=== PATIENT | female | born 1975 | race Caucasian/White ===

== ENCOUNTER 2022-12-05 07:44 | Emergency (ER) | payer MEDICAID ==
[~2022-12-05] VITALS: Ht 160 cm; Wt 65.8 kg
[~2022-12-05 07:44] MED LIST: ABILIFY MYCITE10 M2 PO; ESTR2 PO; PROG100 PO; Prozac20 MG PO; Valium5 MG PO
[2022-12-05 08:04] VITALS: BP 112/76
[2022-12-05] MEDS ORDERED: Lorazepam2 MG PO (08:16)
== END 2022-12-05 08:25 | disposition home or self-care (01) ==
LOC: ER 07:44
DX: Z76.0 Encounter for issue of repeat prescription (principal); F17.200 Nicotine dependence, unspecified, uncomplicated; Z88.2 Allergy status to sulfonamides
CPT/HCPCS: 99281

== ENCOUNTER 2023-01-04 16:02 | Emergency (ER) | payer OTHER ==
[~2023-01-04] VITALS: Ht 167.6 cm; Wt 65.8 kg
[~2023-01-04 16:02] MED LIST changes: +Lorazepam2 MG PO
[2023-01-04 19:02] VITALS: BP 114/70
== END 2023-01-04 19:16 | disposition home or self-care (01) ==
LOC: ER 16:02
DX: S91.201A Unspecified open wound of right great toe with damage to nail, initial encounter (principal); W22.8XXA Striking against or struck by other objects, initial encounter; Z88.2 Allergy status to sulfonamides; Z79.899 Other long term (current) drug therapy; F17.200 Nicotine dependence, unspecified, uncomplicated
CPT/HCPCS: 73660; 99283-25

== ENCOUNTER → 2023-08-19 | Outpatient (CLI) | payer OTHER | END | disposition home or self-care (01) | LOC: LAB 11:25 → LAB SHORT 11:25 | DX: Z09 Encounter for follow-up examination after completed treatment for conditions other than malignant neoplasm (principal); Z87.42 Personal history of other diseases of the female genital tract ==